=== PATIENT | male | born 1995 | race Caucasian/White ===

== ENCOUNTER 2016-04-28 20:33 | Emergency (ER) | payer SELFPAY ==
[~2016-04-28] VITALS: Ht 182.9 cm; Wt 61.2 kg
[2016-04-28 21:34] VITALS: BP 129/70
[2016-04-28] MEDS ORDERED: ACETAMINOPHEN 325 MG TABLET. PO ONE (21:45)
[2016-04-28] MEDS ORDERED: PENICILLIN G BENZATHINE LA 1,200,000 UNIT/2 ML DISP.SYRIN. IM ONE (22:00)
[2016-04-28] MEDS ORDERED: HYDR15SO4 PO (22:06)
--- NOTE | 2016-04-28 22:06 | PHYS DOC ---
Past Medical History Past Medical History: No Pertinent History Past Surgical History: No Surgical History Alcohol Use: Occasionally Drug Use: None Adult General Chief Complaint Chief Complaint: SORE THROAT HPI HPI Patient is a 20 year old male with complaint of sore throat, fever and body aches that essentially began approximately 3 days ago. Patient denies any injury to his throat. Patient denies any known contact with somebody with strep throat or mononucleosis. He denies antibiotic use within the past 30 days. Review of Systems Review of Systems Constitutional: Denies fever or chills [] Eyes: Denies change in visual acuity, redness, or eye pain [] HENT: Denies nasal congestion or sore throat [] Respiratory: Denies cough or shortness of breath [] Cardiovascular: No additional information not addressed in HPI [] GI: Denies abdominal pain, nausea, vomiting, bloody stools or diarrhea [] : Denies dysuria or hematuria [] Musculoskeletal: Denies back pain or joint pain [] Integument: Denies rash or skin lesions [] Neurologic: Denies headache, focal weakness or sensory changes [] Endocrine: Denies polyuria or polydipsia [] Current Medications Current Medications Current Medications Medications (Trade) Dose Ordered Sig/Brooke Start Time Stop Time Status Last Admin Dose Admin Acetaminophen (Tylenol) 650 mg 1X ONCE 04/28/16 21:45 04/28/16 21:46 DC 04/28/16 21:57 650 MG Penicillin G Benzathine (Bicillin L-A) 1,200,000 unit 1X ONCE 04/28/16 22:00 04/28/16 22:01 DC 04/28/16 22:03 1,200,000 UNIT Allergies Allergies Allergies Coded Allergies Type Severity Reaction Last Updated Verified No Known Drug Allergies 04/28/16 No Physical Exam Physical Exam Constitutional: Well developed, well nourished, no acute distress, non-toxic appearance. Patient is ill-appearing and febrile. HENT: Normocephalic, atraumatic, bilateral external ears normal, oropharynx moist, no oral exudates, nose normal. There is no hot potato speech or trismus. Posterior oropharynx is hyperemic. There are exudative plaques on the tonsils. There is no peritonsillar swelling or uvular deviation. Eyes: PERRLA, EOMI, conjunctiva normal, no discharge. [] Neck: Normal range of motion, no tenderness, supple, no stridor. There is no meningismus. There is bilateral anterior cervical lymphadenopathy. Cardiovascular:Heart rate regular rhythm, no murmur [] Lungs & Thorax: Bilateral breath sounds clear to auscultation [] Abdomen: Bowel sounds normal, soft, no tenderness, no masses, no pulsatile masses. [] Skin: Warm, dry, no erythema, no rash. [] Back: No tenderness, no CVA tenderness. [] Extremities: No tenderness, no cyanosis, no clubbing, ROM intact, no edema. [] Neurologic: Alert and oriented X 3, normal motor function, normal sensory function, no focal deficits noted. [] Psychologic: Affect normal, judgement normal, mood normal. [] Current Patient Data Vital Signs Vital Signs Date Time Temp Pulse Resp B/P Pulse Ox O2 Delivery O2 Flow Rate FiO2 04/28/16 21:34 102.7 91 18 99 Room Air 102.7 EKG EKG [] Radiology/Procedures Radiology/Procedures [] Course & Med Decision Making Course & Med Decision Making Patient's rapid strep is positive. Patient elected to receive Bicillin LA here in the emergency department. Dragon Disclaimer Dragon Disclaimer This electronic medical record was generated, in whole or in part, using a voice recognition dictation system. Departure Departure Impression: Primary Impression: Strep pharyngitis Disposition: 01 HOME, SELF-CARE Condition: GOOD Referrals: NO PCP (PCP) Patient Instructions: Strep Throat, [id number] Additional Instructions: 1. You received an antibiotic here in the emergency room called Bicillin LA. You do not need other antibiotics. 2. Take the medication as prescribed. You may also take ibuprofen every 8 hours to help with fever control. Do not take any additional acetaminophen as the liquid pain medicine has acetaminophen in it. 3. Ensure good hydration by drinking non-caffeinated beverages. Ideally, you should drink 8-10, 10 ounce glasses of non-caffeinated beverage daily. 4. Review the discharge instructions for reasons to return to the emergency room. 5. Use the pamphlet provided for assistance in finding a primary care doctor in which to follow-up within the next 3-4 days for reevaluation. Scripts Hydrocodone Bit/Acetaminophen (Hydrocodone-Apap 7.5-325/15 Soln )15 Ml [id number] Ml PO PRN Q6HRS PRN PAIN #120 ML Ref 0 Prov:SHANAE DAVIES 04/28/16 SHANAE DAVIES Apr 28, 2016 22:06
[2016-04-29 08:09] LABS: NEGATIVE OBC STREP NEG; POSITIVE OBC STREP POS
== END 2016-04-28 22:17 | disposition home or self-care (01) ==
LOC: ER 20:33
DX: J02.0 Streptococcal pharyngitis (principal)
CPT/HCPCS: 87880; 96372; 99283; J0561

== ENCOUNTER 2017-12-14 06:54 | Emergency (ER) | payer SELFPAY ==
[~2017-12-14] VITALS: Ht 180.3 cm; Wt 63.5 kg
[~2017-12-14 06:54] MED LIST: HYDR15SO4 PO
[2017-12-14 07:24] VITALS: BP 131/62
[2017-12-14] MEDS ORDERED: LORA10TA3 PO (07:46)
[2017-12-14] MEDS ORDERED: PRED50TA PO (07:46)
[2017-12-14] MEDS ORDERED: predniSONE 10 MG TABLET PO ONE (08:15)
--- NOTE | 2017-12-14 19:11 | PHYS DOC ---
Past Medical History Past Medical History: No Pertinent History Past Surgical History: No Surgical History Additional Information: About 1/2 PPD. Alcohol Use: Occasionally Drug Use: Marijuana Social History Narrative: Last smoked yesterday. Adult General Chief Complaint Chief Complaint: FACE PROBLEM [facility] HPI Patient is a 22 year old male who presents with rash over his face. Patient states he has an insect problem in his bedroom. He relates that he sprayed heavy amounts of pesticides in his bedroom last night prior to going to sleep. He did have a ceiling fan an air conditioner running. When he awoke this morning he had a rash over the cheeks. The rash is described to be irritating and pruritic. Patient does have no prior history of known allergies or allergic reactions. He has no excessive salivation. He has no lacrimation. He has no muscle spasms. No fever. Review of Systems Review of Systems Constitutional: Denies fever or chills Eyes: Denies change in visual acuity, HENT: Denies nasal congestion or sore throat Respiratory: Denies cough or shortness of breath Cardiovascular: No additional information not addressed in HPI GI: Denies abdominal pain, nausea : Denies dysuria or hematuria Musculoskeletal: Denies back pain Integument: Denies rash or skin lesions Neurologic: Denies headache, focal weakness Endocrine: Denies polyuria or polydipsia All other systems were reviewed and found to be within normal limits, except as documented in this note. Current Medications Current Medications Current Medications Medications (Trade) Dose Ordered Sig/Brooke Start Time Stop Time Status Last Admin Dose Admin Prednisone (Prednisone) 50 mg 1X ONCE 12/14/17 08:15 12/14/17 08:15 DC 12/14/17 08:03 50 MG Allergies Allergies Allergies Coded Allergies Type Severity Reaction Last Updated Verified strawberry Allergy Unknown Hives 12/14/17 Yes Physical Exam Physical Exam Constitutional: Well developed, well nourished, no acute distress HENT: Normocephalic, atraumatic Eyes: PERRLA, EOMI Neck: Normal range of motion, no tenderness Cardiovascular:Heart rate regular rhythm Lungs & Thorax: Bilateral breath sounds clear to auscultation Skin: This rash over the bilateral cheeks and forehead. The rash is erythematous and urticarial in places. There are some papules as well. There is no involvement of the lips or tongue or oral mucosa. Back: No tenderness Extremities: No tenderness, no cyanosis Neurologic: Alert and oriented Psychologic: Affect normal Current Patient Data Vital Signs Vital Signs Date Time Temp Pulse Resp B/P (MAP) Pulse Ox O2 Delivery O2 Flow Rate FiO2 12/14/17 07:24 97.9 67 18 131/62 (85) 100 Room Air 97.9 EKG EKG [] Radiology/Procedures Radiology/Procedures [] Course & Med Decision Making Course & Med Decision Making Pertinent Labs and Imaging studies reviewed. (See chart for details) Patient is evaluated in the fast track. He has contact dermatitis from chemical she screening his room. He has no airway involvement. It is very well appearing. Plan is for discharge home. He is placed on a 5 day course of prednisone as well as loratadine for symptom control. He is advised to come back to the ER if he develops any airway or other concerning symptoms. Patient is agreeable to plan of care. Dragon Disclaimer Dragon Disclaimer This electronic medical record was generated, in whole or in part, using a voice recognition dictation system. Departure Departure Impression: Primary Impression: Contact dermatitis Disposition: 01 HOME, SELF-CARE Condition: GOOD Patient Instructions: Contact Dermatitis, [id number] Scripts Loratadine (LORATADINE) 10 Mg Tablet 1 TAB PO DAILY, #10 TAB 0 Refills Prov: JAZMINE MUNIZ DO 12/14/17 Prednisone (PREDNISONE) 50 Mg Tablet 50 MG PO DAILY for 5 Days, #5 TAB Prov: JAZMINE MUNIZ DO 12/14/17 JAZMINE MUNIZ DO Dec 14, 2017 19:11
== END 2017-12-14 08:05 | disposition home or self-care (01) ==
LOC: ER 06:54
DX: L25.9 Unspecified contact dermatitis, unspecified cause (principal); F17.200 Nicotine dependence, unspecified, uncomplicated; Z91.018 Allergy to other foods
CPT/HCPCS: 99283; J7512

== ENCOUNTER 2018-06-29 09:51 | Emergency (ER) | payer SELFPAY ==
[~2018-06-29] VITALS: Ht 154.9 cm; Wt 65.8 kg
[~2018-06-29 09:51] MED LIST changes: -HYDR15SO4 PO; +HYDR15SO6 PO; +LORA10TA3 PO; +PRED50TA PO
[2018-06-29 10:14] VITALS: BP 133/84
[2018-06-29] MEDS ORDERED: AZIT250T6 PO (11:29)
--- NOTE | 2018-06-29 11:29 | PHYS DOC ---
Past Medical History Past Medical History: No Pertinent History Past Surgical History: No Surgical History Alcohol Use: Occasionally Drug Use: Marijuana Adult General Chief Complaint Chief Complaint: COUGH HPI HPI Patient is a 22 year old male who presents with headache, stuffy nose, cough with yellow mucus production, throat pain for 5 days. Review of Systems Review of Systems Constitutional: Denies fever or chills [] Eyes: Denies change in visual acuity, redness, or eye pain [] HENT: nasal congestion or sore throat [] Respiratory: cough or denies shortness of breath [] Cardiovascular: No additional information not addressed in HPI [] GI: Denies abdominal pain, nausea, vomiting, bloody stools or diarrhea [] : Denies dysuria or hematuria [] Musculoskeletal: Denies back pain or joint pain [] Integument: Denies rash or skin lesions [] Neurologic: Denies headache, focal weakness or sensory changes [] Endocrine: Denies polyuria or polydipsia [] All other systems were reviewed and found to be within normal limits, except as documented in this note. Allergies Allergies Allergies Coded Allergies Type Severity Reaction Last Updated Verified strawberry Allergy Unknown Hives 12/14/17 Yes Physical Exam Physical Exam Constitutional: Well developed, well nourished, no acute distress, non-toxic appearance. [] HENT: Normocephalic, atraumatic, bilateral external ears normal, oropharynx moist, no oral exudates, nose normal. Right ear tympanic reddened.[] Eyes: PERRLA, EOMI, conjunctiva normal, no discharge. [] Neck: Normal range of motion, no tenderness, supple, no stridor. [] Cardiovascular:Heart rate regular rhythm, no murmur [] Lungs & Thorax: Bilateral breath sounds clear to auscultation [] Abdomen: Bowel sounds normal, soft, no tenderness, no masses, no pulsatile masses. [] Skin: Warm, dry, no erythema, no rash. [] Back: No tenderness, no CVA tenderness. [] Extremities: No tenderness, no cyanosis, no clubbing, ROM intact, no edema. [] Neurologic: Alert and oriented X 3, normal motor function, normal sensory function, no focal deficits noted. [] Psychologic: Affect normal, judgement normal, mood normal. [] Current Patient Data Vital Signs Vital Signs Date Time Temp Pulse Resp B/P (MAP) Pulse Ox O2 Delivery O2 Flow Rate FiO2 06/29/18 10:14 98.4 98 18 133/84 (100) 99 Room Air 98.4 EKG EKG [] Radiology/Procedures Radiology/Procedures [] Course & Med Decision Making Course & Med Decision Making Patient is a 22 year old male who presents with headache, stuffy nose, cough with yellow mucus production, throat pain for 5 days. Right ear tympanic is reddened. Afebrile. Patient denies a abdomen pain, chest pain, shortness of air nausea, vomiting, diarrhea, fever, body aches. Lungs are clear to auscultation all lobes. Heart rate regular without murmur. Patient rates his overall generalized pain a 6 out of 10. Throat is pink without exudates and there is no swelling. Patient has a respiratory infection. Patient we treated with azithromycin and told to follow up with primary care provider if not getting better. Dragon Disclaimer Dragon Disclaimer This electronic medical record was generated, in whole or in part, using a voice recognition dictation system. Departure Departure Impression: Primary Impression: Respiratory infection Additional Impression: Otitis media Disposition: 01 HOME, SELF-CARE Condition: STABLE Referrals: UNKNOWN PCP NAME (PCP) Patient Instructions: Otitis Media, Adult, Upper Respiratory Infection, Adult Additional Instructions: Follow-up with primary care provider if not getting better. Take over-the- counter cold medications. Take medication as prescribed. Drink plenty of fluids. Try taking Tylenol or ibuprofen for her pain. Scripts Azithromycin (AZITHROMYCIN TABLET) 250 Mg Tablet 1 PKG PO UD, #6 TAB Prov: ADRIANA MAHER APRN 06/29/18 Problem Qualifiers Additional Impression: Otitis media Otitis media type: unspecified Laterality: right Qualified Codes: H66.91 - Otitis media, unspecified, right ear ADRIANA MAHER APRN Jun 29, 2018 11:29
== END 2018-06-29 11:42 | disposition home or self-care (01) ==
LOC: ER 09:51
DX: J98.8 Other specified respiratory disorders (principal); H66.91 Otitis media, unspecified, right ear; R51 Headache; Z91.018 Allergy to other foods
CPT/HCPCS: 99283